=== PATIENT | male | born 1950 | race Two or more races ===

== ENCOUNTER 2018-12-19 08:06 | Outpatient (CLI) | payer OTHER | END 2018-12-19 08:21 | disposition home or self-care (01) | LOC: RAD 08:06 → LAB 08:06 | DX: N20.0 Calculus of kidney (principal); I10 Essential (primary) hypertension ==

== ENCOUNTER 2019-01-06 09:53 | Inpatient (IN) | payer OTHER ==
[~2019-01-06] VITALS: Ht 170.2 cm; Wt 65.3 kg
[2019-01-13] MEDS ORDERED: VASOTEC10 MG PO (13:58)
[2019-01-13] MEDS ORDERED: LEVOXYL25 MCG PO (13:58)
[2019-01-13] MEDS ORDERED: SIMVASTATIN20 MG PO (13:58)
[2019-01-13] MEDS ORDERED: CIPRO500 MG/5 M PO (13:59)
[2019-01-13] MEDS ORDERED: TAMS0.4C PO (13:59)
== END 2019-01-17 12:58 | disposition home or self-care (01) | DRG 661 ==
LOC: SURG 01-15 10:00 → O/R 01-15 10:56 → SURH 01-15 10:56 → SURG 01-15 15:00 → SURH 01-15 19:29
PROVIDERS: ADMIT Urology
PROC: 0TC78ZZ Extirpation of Matter from Left Ureter, Via Natural or Artificial Opening Endoscopic (ICD-10-PCS; 2019-01-15)
PROC: BT1FZZZ Fluoroscopy of Left Kidney, Ureter and Bladder (ICD-10-PCS; 2019-01-15)
PROC: 0T778DZ Dilation of Left Ureter with Intraluminal Device, Via Natural or Artificial Opening Endoscopic (ICD-10-PCS; principal; 2019-01-15 15:00)
DX: N20.1 Calculus of ureter (principal); N20.0 Calculus of kidney; I10 Essential (primary) hypertension; E03.8 Other specified hypothyroidism

== ENCOUNTER → 2019-01-06 | Outpatient (CLI) | payer OTHER ==
[~2019-01-06] MED LIST: CIPRO500 MG/5 M PO; LEVOXYL25 MCG PO; SIMVASTATIN20 MG PO; TAMS0.4C PO; VASOTEC10 MG PO
== END | disposition home or self-care (01) ==
LOC: RAD 10:24
DX: N20.1 Calculus of ureter (principal); I10 Essential (primary) hypertension

== ENCOUNTER 2019-01-22 11:48 | Outpatient (CLI) | payer OTHER | END 2019-01-22 14:33 | disposition home or self-care (01) | LOC: RAD 11:48 | DX: N20.1 Calculus of ureter (principal) ==

== ENCOUNTER → 2019-02-13 08:54 | Outpatient (CLI) | payer OTHER | END | disposition home or self-care (01) | LOC: LAB 08:54 | DX: N20.1 Calculus of ureter (principal) ==

== ENCOUNTER 2019-03-05 09:12 | Outpatient (CLI) | payer OTHER | END 2019-03-05 15:00 | disposition home or self-care (01) | LOC: LAB 09:12 | DX: N30.00 Acute cystitis without hematuria (principal); N20.1 Calculus of ureter ==

== ENCOUNTER 2019-03-05 09:53 | Outpatient (CLI) | payer OTHER | END 2019-03-05 10:29 | disposition home or self-care (01) | LOC: SONOGRAMA 09:53 | DX: N20.0 Calculus of kidney (principal); N20.1 Calculus of ureter ==

== ENCOUNTER 2019-03-17 10:09 | Outpatient (CLI) | payer OTHER | END 2019-03-17 11:00 | disposition home or self-care (01) | LOC: TOM 10:09 | DX: N20.0 Calculus of kidney (principal); N20.1 Calculus of ureter ==

== ENCOUNTER 2020-02-10 09:40 | Outpatient (CLI) | payer OTHER | END 2020-02-10 09:46 | disposition home or self-care (01) | LOC: LAB 09:40 | PROVIDERS: ATTEND Urology | DX: N20.0 Calculus of kidney (principal); N20.1 Calculus of ureter ==

== ENCOUNTER 2020-02-16 10:26 | Outpatient (CLI) | payer OTHER | END 2020-02-16 11:15 | disposition home or self-care (01) | LOC: LAB 10:26 | PROVIDERS: ATTEND Urology | DX: N20.0 Calculus of kidney (principal); N20.1 Calculus of ureter ==

== ENCOUNTER 2020-05-28 09:48 | Outpatient (CLI) | payer OTHER | END 2020-05-28 09:49 | disposition home or self-care (01) | LOC: LAB 09:48 | PROVIDERS: ATTEND Urology | DX: N20.0 Calculus of kidney (principal); N20.1 Calculus of ureter ==

== ENCOUNTER → 2020-11-27 08:41 | Outpatient (CLI) | payer OTHER | END | disposition home or self-care (01) | LOC: LAB 08:41 | PROVIDERS: ATTEND Urology | DX: N20.0 Calculus of kidney (principal); R97.21 Rising PSA following treatment for malignant neoplasm of prostate ==

== ENCOUNTER → 2020-12-01 09:35 | Outpatient (CLI) | payer OTHER | END | disposition home or self-care (01) | LOC: LAB 09:35 | PROVIDERS: ATTEND Urology | DX: N20.0 Calculus of kidney (principal); N20.1 Calculus of ureter ==

== ENCOUNTER 2021-06-08 10:14 | Outpatient (CLI) | payer OTHER | END 2021-06-08 10:18 | disposition home or self-care (01) | LOC: RAD 10:14 | PROVIDERS: ATTEND Urology | DX: N20.0 Calculus of kidney (principal) ==

== ENCOUNTER 2021-07-18 07:34 | Outpatient (CLI) | payer OTHER | END 2021-07-18 07:42 | disposition home or self-care (01) | LOC: LAB 07:34 | PROVIDERS: ATTEND Urology | DX: N20.0 Calculus of kidney (principal); R97.21 Rising PSA following treatment for malignant neoplasm of prostate ==

== ENCOUNTER 2021-08-16 08:02 | Inpatient (IN) | payer OTHER ==
[~2021-08-16] VITALS: Ht 170.2 cm; Wt 63.0 kg
[~2021-08-16 08:02] MED LIST changes: +FUSION PLUS CA1 EACH PO; +MOVE FREE ULTR PO; +POTASSIUM PO
[2021-08-17] MEDS ORDERED: SILDENAFIL CIT100 MG (11:04)
[2021-08-17] MEDS ORDERED: POTASSIUM CITR15 MEQ (11:04)
== END 2021-08-19 11:20 | disposition home or self-care (01) | DRG 660 ==
LOC: CIR.AMB 08-17 08:11 → SURG 08-17 08:52 → O/R 08-17 08:52 → EDSTATUS 08-17 09:26 → SURH 08-17 09:27 → SURG 08-17 18:45
PROVIDERS: ADMIT Urology; ATTEND Urology
PROC: BT1DYZZ Fluoroscopy of Right Kidney, Ureter and Bladder using Other Contrast (ICD-10-PCS; 2021-08-17)
PROC: 0TCC8ZZ Extirpation of Matter from Bladder Neck, Via Natural or Artificial Opening Endoscopic (ICD-10-PCS; 2021-08-17)
PROC: 0TC03ZZ Extirpation of Matter from Right Kidney, Percutaneous Approach (ICD-10-PCS; principal; 2021-08-17 11:45)
DX: N20.2 Calculus of kidney with calculus of ureter (principal); D62 Acute posthemorrhagic anemia; Z20.822 Contact with and (suspected) exposure to COVID-19; I10 Essential (primary) hypertension

== ENCOUNTER 2021-08-26 07:37 | Outpatient (CLI) | payer OTHER ==
[~2021-08-26 07:37] MED LIST changes: +POTASSIUM CITR15 MEQ; +SILDENAFIL CIT100 MG
== END 2021-08-26 07:39 | disposition home or self-care (01) ==
LOC: LAB 07:37
PROVIDERS: ATTEND Urology
DX: D62 Acute posthemorrhagic anemia (principal); N20.0 Calculus of kidney

== ENCOUNTER → 2021-11-16 08:57 | Outpatient (CLI) | payer OTHER | END | disposition home or self-care (01) | LOC: LAB 08:57 | PROVIDERS: ATTEND Urology | DX: N20.0 Calculus of kidney (principal); N30.10 Interstitial cystitis (chronic) without hematuria ==

== ENCOUNTER 2022-02-21 10:31 | Outpatient (CLI) | payer OTHER | END 2022-02-21 10:32 | disposition home or self-care (01) | LOC: LAB 10:31 | PROVIDERS: ATTEND Urology | DX: R97.21 Rising PSA following treatment for malignant neoplasm of prostate (principal); N20.0 Calculus of kidney ==

== ENCOUNTER 2022-09-08 09:22 | Outpatient (CLI) | payer OTHER | END 2022-09-08 09:23 | disposition home or self-care (01) | LOC: LAB 09:22 | PROVIDERS: ATTEND Urology | DX: N20.0 Calculus of kidney (principal) ==

== ENCOUNTER → 2023-04-02 09:57 | Outpatient (CLI) | payer OTHER ==
[2023-04-02 11:26] LABS: CALCIUM 9.1 mg/dL (8.5-10.1); CREATININE SERUM 0.83 mg/dL (0.70-1.30); GFR 91.59; POTASSIUM 4.27 mEq/L (3.5-5.1)
[2023-04-02 11:29] LABS: NA URINE 24 HR 167.475 mmol/24h (40-220)
== END | disposition home or self-care (01) ==
LOC: LAB 09:57
PROVIDERS: ATTEND Urology
DX: N20.0 Calculus of kidney (principal)

== ENCOUNTER 2023-10-08 08:09 | Outpatient (CLI) | payer OTHER ==
[2023-10-08 09:35] LABS: PH,URINE 7.5 (5.0-8.0); URINE APPEARANCE Clear; URINE BILIRRUBIN Negative (NEGATIVE); URINE BLOOD Small; URINE COLOR Yellow; URINE GLUCOSE Negative (NEGATIVE); URINE KETONE Negative (NEGATIVE); URINE LEUKOCYTE Negative; URINE NITRATE Negative; URINE PROTEIN Negative (NEGATIVE); URINE UROBILINOGEN 0.2 E.U./dl
[2023-10-08 09:39] LABS: URINE BACTERIA 12.5 uL (0.0-1933); URINE RBC 124.5 uL (0.0-20.8)
[2023-10-08 10:06] LABS: URINE EPITHELIAL CELLS 0.3 uL (0.0-38.8); URINE WBC 1.5 uL (0.0-23.2)
[2023-10-08 10:07] LABS: URINE CAST 0.76 uL (0.0-1.40)
[2023-10-08 10:20] LABS: CALCIUM 8.8 mg/dL (8.5-10.1); CREATININE SERUM 0.84 mg/dL (0.70-1.30); GFR 90.07; POTASSIUM 4.37 mEq/L (3.5-5.1); PROSTATIC SPECIFIC ANTIGEN 2.1 NG/ML (0.010-4.00)
== END 2023-10-08 08:18 | disposition home or self-care (01) ==
LOC: LAB 08:09
PROVIDERS: ATTEND Urology
DX: N20.0 Calculus of kidney (principal); N40.0 Benign prostatic hyperplasia without lower urinary tract symptoms

== ENCOUNTER 2024-05-01 09:03 | Outpatient (CLI) | payer OTHER | END 2024-05-01 09:13 | disposition home or self-care (01) | LOC: LAB 09:03 | PROVIDERS: ATTEND Urology | DX: N20.0 Calculus of kidney (principal) ==

== ENCOUNTER 2024-07-01 07:57 | Outpatient (CLI) | payer OTHER | END 2024-07-01 08:01 | disposition home or self-care (01) | LOC: RAD 07:57 | PROVIDERS: ATTEND Urology | DX: N20.0 Calculus of kidney (principal) ==

== ENCOUNTER 2024-07-03 08:09 | Outpatient (CLI) | payer OTHER ==
[2024-07-03 09:03] LABS: NA URINE 24 HR 105.4 mmol/24h (40-220)
[2024-07-04 13:08] LABS: C ur 8.3 mg/dL (Not Estab.)
== END 2024-07-03 08:24 | disposition home or self-care (01) ==
LOC: LAB 08:09
PROVIDERS: ATTEND Urology
DX: N20.0 Calculus of kidney (principal)

== ENCOUNTER 2024-08-11 07:13 | Outpatient (CLI) | payer OTHER ==
[2024-08-11 07:42] LABS: BASO % 1.1 % (0.1-1.2); EOS # 0.15 (0.04-0.54); EOS % 3.2 % (0.7-7.0); HEMATOCRIT 35.7 % (40.1-51.0); HEMOGLOBIN 12.2 g/dL (13.7-17.5); LYMPH # 1.55 (1.18-3.74); LYMPH % 33.4 % (19.3-53.1); MEAN CORPUSCULAR HEMOGLOBIN 33.1 pg (25.6-32.2); MONO # 0.53 (0.24-0.82); MONO % 11.4 % (4.7-12.5); NEUT # 2.36 (1.56-6.13); NEUT % 50.9 % (34.0-71.1); PLATELET COUNT 165 K/uL (163-369); RED BLOOD COUNT 3.69 M/uL (4.63-6.08); RED CELL DISTRIBUTION WIDTH 13.3 % (11.6-14.4)
[2024-08-11 07:56] LABS: PH,URINE 5.5 (5.0-8.0); URINE APPEARANCE Clear; URINE BILIRRUBIN Negative (NEGATIVE); URINE BLOOD Negative; URINE COLOR Yellow; URINE GLUCOSE Negative (NEGATIVE); URINE KETONE Negative (NEGATIVE); URINE LEUKOCYTE Negative; URINE NITRATE Negative; URINE PROTEIN Negative (NEGATIVE)
[2024-08-11 07:57] LABS: URINE RBC 4.1 uL (0.0-20.8)
[2024-08-11 08:12] LABS: INR 1.02; PARTIAL THROMBOPLASTIN TIME 25.2 SECONDS (22.0-34.0); PROTHROMBIN TIME 11.1 SECONDS (9.0-11.5)
[2024-08-11 08:28] LABS: URINE BACTERIA 3.6 uL (0.0-1933); URINE CAST 0.14 uL (0.0-1.40); URINE EPITHELIAL CELLS 0.4 uL (0.0-38.8); URINE WBC 0.4 uL (0.0-23.2)
[2024-08-11 08:51] LABS: CALCIUM 8.9 mg/dL (8.5-10.1); CREATININE SERUM 0.77 mg/dL (0.70-1.30); GFR 99.31; POTASSIUM 4.18 mEq/L (3.5-5.1)
== END 2024-08-11 07:20 | disposition home or self-care (01) ==
LOC: LAB 07:13
PROVIDERS: ATTEND Urology
DX: N20.0 Calculus of kidney (principal); N20.1 Calculus of ureter

== ENCOUNTER → 2024-09-12 | Outpatient (CLI) | payer OTHER | END | disposition home or self-care (01) | LOC: RAD 08:08 | PROVIDERS: ATTEND Urology | DX: N20.0 Calculus of kidney (principal) ==